=== PATIENT | male | born 2000 | race Asian ===

== ENCOUNTER 2022-12-17 13:42 | Emergency (ER) | payer OTHER ==
[2022-12-17 13:52] VITALS: BP 147/74
--- NOTE | 2022-12-17 13:59 | ED Physician Documentation ---
PD HPI UPPER EXT INJURY - Stated complaint Stated Complaint: RT HAND INJ - Chief complaint Chief Complaint: Ext Problem - History obtained from History obtained from: Patient - History of Present Illness Location: Right, Hand Type of injury: Blunt / blow (he states a coworker unintentionally pushed a 30 lb box against his hand during work. Pain in middle finger MCP area.) Where injury occurred: Work Timing - onset: How many hours ago (1), Today Timing - details: Abrupt onset, Still present Improved by: Rest Worsened by: Moving, Palpating Associated symptoms: Swelling. No: Weakness, Numbness Recently seen: Not recently seen Review of Systems Skin: denies: Abrasion (s), Laceration (s) Neurologic: denies: Focal weakness, Numbness PD PAST MEDICAL HISTORY - Past Medical History Past Medical History: No Cardiovascular: None Respiratory: None Neuro: None Endocrine/Autoimmune: None GI: None : None HEENT: None Psych: None Musculoskeletal: None Derm: None - Past Surgical History Past Surgical History: No - Present Medications Home Medications: Ambulatory Orders Medication Instructions Recorded Confirmed Ibuprofen [Motrin] 600 mg PO TID PRN #25 tab 12/17/22 - Allergies Allergies/Adverse Reactions: Allergies Allergy/AdvReac Type Severity Reaction Status Date / Time No Known Drug Allergies Allergy Verified 12/17/22 13:50 - Social History Does the pt smoke?: No Smoking Status: Never smoker Does the pt drink ETOH?: No Does the pt have substance abuse?: No - Immunizations Immunizations are current?: Yes - POLST Patient has POLST: No PD ED PE NORMAL - Vitals Vital signs reviewed: Yes - General General: Alert and oriented X 3, Well developed/nourished - Derm Derm: Normal color, Warm and dry - Extremities Extremities: Other (right hand dorsal and plamar area at middle finger MCP with swelling, tenderness. No noted deformity. good color and cap refill in fingertip. Flex/ext painful but can do. ) - Neuro Neuro: Alert and oriented X 3, No motor deficit, Normal speech Results - Vitals Vitals: Vital Signs - 24 hr 12/17/22 13:45 Temperature 36.4 C L Heart Rate 75 Respiratory 19 Rate Blood Pressure 147/74 H O2 Saturation 98 Oxygen O2 Source Room air - Rads (name of study) riht hand Relevant Findings:: Prelim report reviewed, EMP independent interpretation of test (no fractures), See rad report PD Medical Decision Making - ED course Complexity details: reviewed results, considered differential (no fractures but significant contusion and will be painful likely days to week or more. Can splint and mellisa tape to reduce MCP motion. ), d/w patient Departure - Departure Disposition: 01 Home, Self Care Clinical Impression: Hand contusion Qualifiers: Encounter type: initial encounter Laterality: right Qualified Code(s): S60.221A - Contusion of right hand, initial encounter Condition: Stable Record reviewed to determine appropriate education?: Yes Instructions: ED Contusion Hand Follow-Up: [facility] [Provider Group] Prescriptions: Ibuprofen [Motrin] 600 mg PO TID PRN #25 tab PRN Reason: Pain Comments: Your x-ray does not show any fractures. Obviously still injured from bruising and crush injury. This will still take a while for healing. The initial swelling and bruising will take likely 4 to 5 days for improvement. Splint and rest and ice elevate rest for the hand to help reduce swelling over the next several days. Minimal to light use over the next 4 to 5 days. Ibuprofen 2-3 times daily for the next several days to a week. Add Tylenol if needed. Follow-up with your primary care in about 5 to 6 days, call for an appointment. Forms: Activity restrictions Discharge Date/Time: 12/17/22 14:22
[2022-12-17] MEDS ORDERED: IBUPROFEN 600 MG TABLET PO STA (14:13)
--- NOTE | 2022-12-17 14:33 | XRAY Report ---
PROCEDURE: Hand 3 View RT INDICATIONS: PAIN/TENDERNESS R HAND TECHNIQUE: 3 views of the hand(s) acquired. COMPARISON: None. FINDINGS: Bones: No fractures or dislocations. No suspicious bony lesions. Soft tissues: No suspicious soft tissue calcifications or masses. IMPRESSION: No acute bony abnormality. Reviewed by: Camron Flores MD on 12/17/2022 2:32 PM PDT Approved by: Camron Flores MD on 12/17/2022 2:32 PM PDT Station ID: [id number]
== END 2022-12-17 14:22 | disposition home or self-care (01) ==
LOC: ED 13:42
DX: S60.221A Contusion of right hand, initial encounter (principal); W22.8XXA Striking against or struck by other objects, initial encounter; Y99.0 Civilian activity done for income or pay
CPT/HCPCS: 73130; 99283; 99284; A9270